=== PATIENT | male | born 1980 | race Caucasian/White ===

== ENCOUNTER 2018-01-10 13:51 | Emergency (ER) | payer BC ==
--- NOTE | 2018-01-10 14:06 | EDM.PDOC ---
ED HPI GENERAL MEDICAL PROBLEM - General Chief Complaint: Neurological Problem Stated Complaint: VERTIGO/DIZZY Time Seen by Provider: 01/10/18 14:06 Source of Information: Reports: Patient - History of Present Illness INITIAL COMMENTS - FREE TEXT/NARRATIVE: Patient is here today for evaluation of a repeat episode of vertigo. Patient stated that symptoms of dizziness/spinning sensation started today, much worse when turning head to the right or lying on the right. Denies any headache or change in speech. Denies any weakness. No recent illness. No drug or alcohol use. Patient has a history of vertigo approximately 2 years ago, states the episode lasted approximately 3 days and he is here in the ER as he wants to "catch it early" as he does not have 3 days to be away from work. Primary residence and PCP are in [place], [place], he is here in [place] for work. Reports history of HTN, not currently on medication for this as he was able to get under control with lifestyle. - Related Data Allergies Allergy/AdvReac Type Severity Reaction Status Date / Time No Known Allergies Allergy Verified 01/10/18 14:08 Home Meds: Home Meds Meclizine [Antivert] 25 mg PO Q6H PRN #20 tab 01/10/18 [Rx] Ondansetron HCl [Zofran] 4 mg PO TID PRN #15 tablet 01/10/18 [Rx] ED ROS GENERAL - Review of Systems Review Of Systems: See Below Constitutional: Reports: No Symptoms HEENT: Reports: Vertigo. Denies: Vision Change Respiratory: Reports: No Symptoms Cardiovascular: Reports: No Symptoms GI/Abdominal: Reports: Nausea. Denies: Abdominal Pain, Diarrhea, Decreased Appetite Musculoskeletal: Reports: No Symptoms Skin: Reports: No Symptoms Neurological: Reports: No Symptoms Psychiatric: Reports: Hallucinations ED EXAM, NEURO - Physical Exam Exam: See Below Exam Limited By: No Limitations General Appearance: Alert, WD/WN, No Apparent Distress Eye Exam: Bilateral Eye: PERRL Ears: Normal External Exam, Normal TMs, Other (excess cerumen on the left canal) Throat/Mouth: Normal Inspection, Normal Oropharynx Head Exam: Atraumatic, Normocephalic Neck: Normal Inspection, Non-Tender Respiratory/Chest: No Respiratory Distress, Normal Breath Sounds, No Accessory Muscle Use Cardiovascular: Normal Peripheral Pulses, Regular Rate, Rhythm, No Murmur GI/Abdominal: Normal Bowel Sounds, Soft, Non-Tender Neurological: Alert, Normal Mood/Affect, CN II-XII Intact, Normal Gait, No Motor /Sensory Deficits, Oriented x 3, Other (Worsening vertigo symptoms with position change, no nystagmus noted with this.). No: Abnormal Finger to Nose, Difficulty Walking Back Exam: Normal Inspection, Full Range of Motion Extremities: Normal Inspection, Normal Range of Motion Psychiatric: Normal Affect, Normal Mood Skin Exam: Warm, Dry, Intact Course - Vital Signs Last Recorded V/S: Last Vital Signs Temp 97.5 F 01/10/18 14:12 Pulse 57 L 01/10/18 14:12 Resp 20 01/10/18 14:12 BP 150/96 H 01/10/18 14:12 Pulse Ox 96 01/10/18 14:12 - Orders/Labs/Meds Labs: Laboratory Tests 01/10/18 01/10/18 Range/Units 14:51 14:51 WBC 7.57 (4.23-9.07) K/mm3 RBC 5.55 (4.63-6.08) M/mm3 Hgb 16.0 (13.7-17.5) gm/L Hct 45.8 (40.1-51.0) % MCV 82.5 (79.0-92.2) fl MCH 28.8 (25.7-32.2) pg MCHC 34.9 (32.2-35.5) g/dl RDW Std Deviation 43.5 (35.1-43.9) fL Plt Count 203 (163-337) K/mm3 MPV 10.0 (9.4-12.3) fl Neutrophils % (Manual) 66 H (40-60) % Band Neutrophils % 0 (0-10) % Lymphocytes % (Manual) 22 (20-40) % Atypical Lymphs % 1 % Monocytes % (Manual) 10 (2-10) % Eosinophils % (Manual) 1 (0.8-7.0) % Basophils % (Manual) 0 L (0.2-1.2) Platelet Estimate Adequate Plt Morphology Comment Normal Anisocytosis 1+ slight Microcytosis 1+ slight Macrocytosis 1+ slight RBC Morph Comment Abnormal Sodium 140 (136-145) mEq/L Potassium 4.1 (3.5-5.1) mEq/L Chloride 103 (98-107) mEq/L Carbon Dioxide 29 (21-32) mEq/L Anion Gap 12.1 (5-15) BUN 13 (7-18) mg/dL Creatinine 0.8 (0.7-1.3) mg/dL Est Cr Clr Drug Dosing TNP Estimated GFR (MDRD) > 60 (>60) mL/min BUN/Creatinine Ratio 16.3 (14-18) Glucose 122 H (74-106) mg/dL Calcium 8.9 (8.5-10.1) mg/dL Total Bilirubin 0.3 (0.2-1.0) mg/dL AST 26 (15-37) U/L ALT 56 (16-63) U/L Alkaline Phosphatase 48 (46-116) U/L C-Reactive Protein < 0.2 (<1.0) mg/dL Total Protein 7.1 (6.4-8.2) g/dl Albumin 3.7 (3.4-5.0) g/dl Globulin 3.4 gm/dL Albumin/Globulin Ratio 1.1 (1-2) TSH 3rd Generation 0.939 (0.358-3.74) uIU/mL Meds: Medications Discontinued Medications Generic Name Dose Route Start Last Admin Trade Name Freq PRN Reason Stop Dose Admin Sodium Chloride 1,000 mls @ 999 mls/hr 01/10/18 14:39 01/10/18 15:03 Normal Saline IV 01/10/18 15:39 999 mls/hr ONETIME ONE Administration Meclizine HCl 25 mg 01/10/18 14:40 01/10/18 15:04 Antivert PO 01/10/18 14:41 25 mg ONETIME ONE Administration Ondansetron HCl 4 mg 01/10/18 14:39 01/10/18 15:04 Zofran IVPUSH 01/10/18 14:40 4 mg ONETIME ONE Administration - Re-Assessments/Exams Free Text/Narrative Re-Assessment/Exam: Vertigo and nausea resolved with treatment with meclizine/Zofran and 1 L normal saline. Patient will be discharged, prescribed meclizine to be used on an outpatient basis. He was was also given a handout for half somersault maneuver. Discussed with patient if he would like to try physical therapy for treatment of his vertigo symptoms, this is an option on an outpatient basis if he has persistent symptoms. Patient's blood pressure remain on the high end of normal throughout his visit. He previously was on antihypertensive medication. He will follow-up with his PCP to have this reevaluated when he returns to [place], does not elect to resume medication at this time. 01/10/18 15:53 Departure - Departure Time of Disposition: 15:48 Disposition: Home, Self-Care 01 Condition: Good Clinical Impression: Vertigo - Discharge Information Prescriptions: Meclizine [Antivert] 25 mg PO Q6H PRN #20 tab PRN Reason: Dizziness Ondansetron HCl [Zofran] 4 mg PO TID PRN #15 tablet PRN Reason: Nausea Instructions: Vertigo, How to Perform the Hayley Maneuver Referrals: Anand Garay PA [Emergency Provider] - Forms: ED Department Discharge Additional Instructions: You were evaluated in the emergency room for an episode of dizziness. Neurologic exam and lab work (looking for infection, anemia and abnormal thyroid ) were all normal. Vertigo is the likely cause of her dizziness. You can treat this with taking as needed meclizine for your vertigo symptoms and as needed Zofran for nausea. You should perform the half somersault maneuver at home as needed for vertigo symptoms. If you decide to try physical therapy coming to call Anand Garay PA-C in the clinic to set this up at [phone]. You also need to call and consider following up with your primary provider back in [place] for recheck of your blood pressure.
[2018-01-10] MEDS ORDERED: Ondansetron 4 MG/2 ML SDV IVPUSH ONE (14:39)
[2018-01-10] MEDS ORDERED: Sodium Chloride 0.9% 1,000 ML IV ONE (14:39)
[2018-01-10] MEDS ORDERED: Meclizine 12.5 MG Tab PO ONE (14:40)
== END 2018-01-10 16:04 | disposition home or self-care (01) ==
LOC: JD.ED 13:51
DX: R42 Dizziness and giddiness (principal); I10 Essential (primary) hypertension
CPT/HCPCS: 36415; 80053; 84443; 85007; 85027; 86140; 96361; 96374; 99284; A9270; J2405; J7040

== ENCOUNTER 2020-05-24 16:43 | Emergency (ER) | payer BC ==
[2020-05-24] MEDS ORDERED: HYDROmorphone 1 MG/ML Syringe IM ONE (17:01)
--- NOTE | 2020-05-24 17:06 | EDM.PDOC ---
ED HPI GENERAL MEDICAL PROBLEM - General Chief Complaint: Lower Extremity Injury/Pain Stated Complaint: L ANKLE PAIN Time Seen by Provider: 05/24/20 16:55 Source of Information: Reports: Patient, RN Notes Reviewed History Limitations: Reports: No Limitations - History of Present Illness INITIAL COMMENTS - FREE TEXT/NARRATIVE: Patient is a 39-year-old male who presents to the ED for the evaluation of his left ankle pain. Patient notes that earlier today, he was walking, and he felt a pop and then had some pain in his left ankle and left foot. He states he did not have a fall slip or trip. He simply stepped on his foot wrong. He did not take any sort of pain medications prior to coming here but does have a lidocaine patch applied. He has no numbness or tingling into his toes, and can move his toes in all range of motion. He states walking is difficult but can bear weight. He does note prior surgery to this ankle roughly 10 years ago. Patient denies any other sick-like symptoms, fever/chills, cough/shortness of breath, nausea/vomiting/diarrhea. Left Ankle Pain Score (Numeric/FACES): 1 - Related Data Allergies Allergy/AdvReac Type Severity Reaction Status Date / Time No Known Allergies Allergy Verified 05/24/20 16:54 Home Meds: Home Meds Meclizine [Antivert] 25 mg PO Q6H PRN #20 tab 01/10/18 [Rx] ondansetron HCL [Zofran] 4 mg PO TID PRN #15 tablet 01/10/18 [Rx] Acetaminophen/HYDROcodone [[place]dale 325-5 MG] 1 tab PO Q6H PRN #15 tablet 05/24/20 [Rx] Past Medical History Respiratory History: Reports: Sleep Apnea Musculoskeletal History: Reports: Other (See Below) Other Musculoskeletal History: left leg fracture with plate Neurological History: Reports: Vertigo - Past Surgical History HEENT Surgical History: Reports: Other (See Below) Other HEENT Surgeries/Procedures: deviated septum Musculoskeletal Surgical History: Reports: Arthroscopic Knee, Other (See Below) Other Musculoskeletal Surgeries/Procedures:: fractured metatarsal, ankle surgery 2008 Social & Family History - Tobacco Use Tobacco Use Status *Q: Never Tobacco User Second Hand Smoke Exposure: No - Caffeine Use Caffeine Use: Reports: None - Recreational Drug Use Recreational Drug Use: No Review of Systems - Review of Systems Review Of Systems: Comprehensive ROS is negative, except as noted in HPI. ED EXAM, GENERAL - Physical Exam Exam: See Below Exam Limited By: No Limitations General Appearance: Alert, WD/WN, No Apparent Distress Respiratory/Chest: No Respiratory Distress, Lungs Clear, Normal Breath Sounds, No Accessory Muscle Use, Chest Non-Tender Cardiovascular: Normal Peripheral Pulses, Regular Rate, Rhythm, No Edema Peripheral Pulses: 2+: Dorsalis Pedis (L), Dorsalis Pedis (R) Extremities: Normal Inspection, Normal Capillary Refill, Limited Range of Motion (of left foot/ankle d/t pain) Neurological: Alert, Oriented, Normal Cognition, No Motor/Sensory Deficits Psychiatric: Normal Affect, Normal Mood Skin Exam: Warm, Dry, Intact, Normal Color, No Rash Course - Vital Signs Last Recorded V/S: Last Vital Signs Temp 96.4 F L 05/24/20 16:51 Pulse 55 L 05/24/20 16:51 Resp 16 05/24/20 16:51 BP 155/100 H 05/24/20 16:51 Pulse Ox 98 05/24/20 16:51 - Orders/Labs/Meds Orders: Active Orders 24 hr Category Date Time Status DME for Discharge [COMM] Routine Oth 05/24/20 17:50 Ordered Meds: Medications Discontinued Medications Generic Name Dose Route Start Last Admin Trade Name Justin PRN Reason Stop Dose Admin Hydrocodone Bitart/Acetaminophen 2 tab 05/24/20 17:49 [place] 325-5 Mg PO 05/24/20 17:50 ONETIME ONE Hydromorphone HCl 1 mg 05/24/20 17:01 05/24/20 17:23 Dilaudid IM 05/24/20 17:02 1 mg ONETIME ONE Administration - Re-Assessments/Exams Free Text/Narrative Re-Assessment/Exam: 05/24/20 17:05 Patient presents to the ED for the evaluation of his left foot/ankle injury. We will get x-rays and give him some pain medications. 05/24/20 17:50 Patient's x-rays appear without acute fracture or bony abnormalities. There was old trauma as noted but no acute fractures. Departure - Departure Time of Disposition: 17:51 Disposition: Home, Self-Care 01 Condition: Good Clinical Impression: Left ankle sprain Qualifiers: Encounter type: initial encounter Involved ligament of ankle: unspecified ligament Qualified Code(s): S93.402A - Sprain of unspecified ligament of left ankle, initial encounter - Discharge Information *PRESCRIPTION DRUG MONITORING PROGRAM REVIEWED*: Yes *COPY OF PRESCRIPTION DRUG MONITORING REPORT IN PATIENT ALFONSO: No Prescriptions: Acetaminophen/HYDROcodone [[place] 325-5 MG] 1 tab PO Q6H PRN #15 tablet PRN Reason: Pain Instructions: Ankle Sprain, [id number] Referrals: PCP,Not In Area [Primary Care Provider] - Forms: ED Department Discharge, ED Return to Work/School Form Additional Instructions: You have been evaluated in the ED for your left foot/ankle pain. Your x-ray demonstrated no acute fractures, the old hardware seems to be in place with no abnormality. Please use ice as tolerated to the affected area. You may elevate the affected area to provide further relief from swelling. You may take Tylenol 500 mg or ibuprofen 600mg q6 hrs for pain relief. Please do so until you have a tolerable level of pain with activity. Do not exceed 4000mg Tylenol, Do not exceed 3200mg ibuprofen in a 24 hour time period. You were given a prescription for a strong pain medication, hydrocodone/acetaminophen 5/325, please take 1 tab every 6 hours as needed for pain not relieved by Tylenol or ibuprofen alone. Please note this does contain Tylenol in it, so do not take more than 4000 mg in a 24-hour time span. These medications can be addictive, so please take as few as possible to achieve adequate pain control. These meds can also be quite constipating, recommend that you increase your oral fluid intake and take a stool softener like MiraLAX while taking these medications. Please return to ED if your symptoms should change or worsen. Sepsis Event Note (ED) - Evaluation Sepsis Screening Result: No Definite Risk - Focused Exam Vital Signs: Vital Signs Temp Pulse Resp BP Pulse Ox 05/24/20 16:51 96.4 F L 55 L 16 155/100 H 98 - My Orders Last 24 Hours: My Active Orders 05/24/20 17:50 DME for Discharge [COMM] Routine - Assessment/Plan Last 24 Hours: My Active Orders 05/24/20 17:50 DME for Discharge [COMM] Routine
--- NOTE | 2020-05-24 17:39 | CR ---
Left ankle: 4 views of the left ankle were obtained. Comparison: No previous study. Old healed fracture deformity is noted within the distal tibia. Fractured plate and screw is noted at this fibular level. Single intact screw is noted across the tibia and fibula more distally. Mild cortical irregularity is noted between the talus and distal fibula compatible with old injury. Well-corticated bony density is noted off the medial ankle which is stable. Deformity is noted within the posterior malleolus compatible with old healed fracture. Spur is noted at the attachment of the Achilles tendon to the calcaneus. No discrete fracture or other abnormality is appreciated. Impression: 1. Findings of old trauma as noted above. 2. Small spur at the attachment of the Achilles tendon to the calcaneus. Diagnostic code #2
--- NOTE | 2020-05-24 17:40 | CR ---
Left foot: 4 views of the left foot were obtained. Deformity is noted within the base of the fifth metatarsal compatible with old healed fracture. Old fracture is noted within the corner base of the distal phalanx of the left first toe. Previous ankle trauma is noted which appears healed. No acute fracture or dislocation is seen. Impression: 1. Old trauma as noted above. 2. Nothing acute is definitely appreciated on the left foot exam. Diagnostic code #2
[2020-05-24] MEDS ORDERED: Acetaminophen/HYDROcodone 325-5 MG Tab PO ONE (17:49)
== END 2020-05-24 18:10 | disposition home or self-care (01) ==
LOC: JD.ED 16:43
DX: S93.402A Sprain of unspecified ligament of left ankle, initial encounter (principal); X50.9XXA Other and unspecified overexertion or strenuous movements or postures, initial encounter
CPT/HCPCS: 73610; 73630; 96372; 99283; A9270; J1170